=== PATIENT | male | born 1975 | race Caucasian/White ===

== ENCOUNTER 2019-01-29 13:22 | Inpatient (IN) | payer OTHER ==
[2019-01-29 16:16] VITALS: BMI 23.7
--- NOTE | 2019-01-29 20:38 | HP ---
COWS - Scale Resting Pulse: 0= [place] 80 or Below Sweatin=Flushed/Facial Moisture Restless Observation: 5= Unable to Sit Still Pupil Size: 1= Pupils >than Normal Bone or Joint Aches: 4=Acute Joint/Muscle Pain Runny Nose/ Eye Tearin= Nasal Congestion GI Upset > 30mins: 3= Vomiting/Diarrhea Tremor Observation: 0= None Yawning Observation: 1= 1-2x During Session Anxiety or Irritability: 2=Irritable/Anxious Goose Flesh Skin: 3=Piloerection COWS Score: 22 CIWA Score Nausea/Vomitin Muscle Tremors: None Anxiety: 4-Mod. Anxious/Guarded Agitation: 4-Moderately Restless Paroxysmal Sweats: 3 Orientation: 3-Disoriented Date>2 days Tacttile Disturbances: 3-Moderate Itch/Numb/Burn Auditory Disturbances: 0-None Visual Disturbances: 2-Mild Sensitivity (too light) Headache: 3-Moderate CIWA-Ar Total Score: 25 - Admission Criteria OASAS Guidelines: Admission for Medically Managed Detox: Requires at least one of the followin. CIWA greater than 12 2. Seizures within the past 24 hours 3. Delirium tremens within the past 24 hours 4. Hallucinations within the past 24 hours 5. Acute intervention needed for co occurring medical disorder 6. Acute intervention needed for co occurring psychiatric disorder 7. Severe withdrawal that cannot be handled at a lower level of care (continued vomiting, continued diarrhea, abnormal vital signs) requiring intravenous medication and/or fluids 8. Patient presents the following: CIWA greater than 12 Admission Criteria Met: Admission criteria met Admission ROS [facility] Chief Complaint: c/o withdrawal sx's Allergies/Adverse Reactions: Allergies Allergy/AdvReac Type Severity Reaction Status Date / Time No Known Allergies Allergy Verified 01/29/19 16:09 History of Present Illness: 43 Y.O. MALE WITH POLYSUBSTANCE ABUSE HERE FOR ALCOHOL AND HEROIN DETOX. HE WAS REFERRED BY [facility] AFTER PRESENTING THERE "DOPE SICK". HE WAS GIVEN A 10 MG METHADONE INJ. AND LIBRIUM TO STABILIZE. PRESENTS HERE WITH C/O WORSENING WITHDRAWAL SX'S. REPORTS DAILY USE OF ALCOHOL AND HEROIN. LAST USE 1 DAY AGO DUE TO BEING ARRESTED. REPORTS HX/O BLACK OUTS. DENIES SEIZURES, OVERDOSE, IVDU,. DENIES ANY CLEAN TIME. 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 Exam Limitations: No Limitations - Ebola screening Have you traveled outside of the country in the last 21 days: No (N) Have you had contact with anyone from an Ebola affected area: No Do you have a fever: No - Review of Systems Constitutional: Chills, Loss of Appetite, Malaise, Night Sweats, Changes in sleep EENT: reports: Nose Congestion (WITH RUNNY NOSE), Dental Problems (MISSING TOOTH / DENTAL PAIN) Respiratory: reports: No Symptoms reported Cardiac: reports: No Symptoms Reported GI: reports: Nausea, Poor Appetite, Poor Fluid Intake, Vomiting, Abdominal cramping : reports: No Symptoms Reported Musculoskeletal: reports: Back Pain, Joint Pain Integumentary: reports: Flushing, Sweating Neuro: reports: Headache, Seizure, Other (BLACK OUTS) Endocrine: reports: No Symptoms Reported Hematology: reports: No Symptoms Reported Psychiatric: reports: Agitated (IRRITABLE), Anxious Other Systems: Reviewed and Negative Patient History - Patient Medical History Hx Anemia: No Hx Asthma: No Hx Chronic Obstructive Pulmonary Disease (COPD): No Hx Cancer: No Hx Cardiac Disorders: No Hx Congestive Heart Failure: No Hx Hypertension: No Hx Hypercholesterolemia: No Hx Pacemaker: No HX Cerebrovascular Accident: No Hx Seizures: No (DENIES) Hx Dementia: No Hx Diabetes: No Hx Gastrointestinal Disorders: No Hx Liver Disease: No Hx Genitourinary Disorders: No Hx Sexually Transmitted Disorders: No Hx Renal Disease (ESRD): No Hx Thyroid Disease: No Hx Human Immunodeficiency Virus (HIV): No Hx Hepatitis C: No Hx Depression: No Hx Suicide Attempt: No Hx Bipolar Disorder: No Hx Schizophrenia: No Other Medical History: DENIES - Patient Surgical History Past Surgical History: No - PPD History Previous Implant?: Yes Documented Results: Negative w/proof Implanted On Prior [facility] Admission?: No PPD to be Administered?: Yes - Smoking Cessation Smoking history: Current every day smoker Have you smoked in the past 12 months: Yes Aproximately how many cigarettes per day: 10 Hx Chewing Tobacco Use: No Initiated information on smoking cessation: Yes 'Breaking Loose' booklet given: 01/29/19 - Substance & Tx. History Hx Alcohol Use: Yes Hx Substance Use: Yes Substance Use Type: Alcohol, Cocaine, Heroin, Marijuana Hx Substance Use Treatment: No - Substances abused Heroin Substance route: Inhalation Frequency: Daily Amount used: 20 bags/daily Age of first use: 40 Date of last use: 01/29/19 Other Other (specify): Fentanyl Substance route: Inhalation Frequency: Daily Amount used: 20 bags/daily Age of first use: 41 Date of last use: 01/29/19 Alcohol Substance route: Oral Frequency: Daily Amount used: 1 bottle of vern Age of first use: 36 Date of last use: 01/28/19 Admission Physical Exam S - Vital Signs Vital Signs: Vital Signs - 24 hr 01/29/19 01/29/19 16:06 20:10 Temperature 97.1 F L 97.1 F L Pulse Rate 62 62 Respiratory 18 18 Rate Blood Pressure 115/65 115/65 - Physical General Appearance: Yes: Moderate Distress, Irritable (EXTREMELY), Anxious HEENTM: Yes: EOMI, Normocephalic, Normal Voice, DANIEL, Pharynx Normal, Nasal Congestion, Other (MISSING TOOTH) Respiratory: Yes: Chest Non-Tender, Lungs Clear, Normal Breath Sounds, No Respiratory Distress Neck: Yes: No masses,lesions,Nodules, Supple, Trachea in good position Breast: Yes: Breasts Symetrical Cardiology: Yes: Regular Rhythm, Regular Rate, S1, S2 Abdominal: Yes: Normal Bowel Sounds, Non Tender, Soft Genitourinary: Yes: Within Normal Limits Back: Yes: Normal Inspection Musculoskeletal: Yes: full range of Motion, Gait Steady, Back pain (C/O) Extremities: Yes: Normal Range of Motion, Non-Tender Neurological: Yes: Alert, Motor Strength 5/5, Depressed Affect (DENIES SI) Integumentary: Yes: Dry, Warm, Other (FLUSHED) Lymphatic: Yes: Within Normal Limits - Diagnostic (1) Alcohol dependence with withdrawal, uncomplicated Current Visit: Yes Status: Acute (2) Opioid dependence with withdrawal Current Visit: Yes Status: Acute (3) Cannabis dependence, uncomplicated Current Visit: Yes Status: Acute (4) Cocaine dependence, uncomplicated Current Visit: Yes Status: Acute (5) Nicotine dependence Current Visit: Yes Status: Chronic Qualifiers: Nicotine product type: cigarettes Substance use status: uncomplicated Qualified Code(s): F17.210 - Nicotine dependence, cigarettes, uncomplicated (6) At risk for dehydration due to poor fluid intake Current Visit: Yes Status: Acute (7) Homeless Current Visit: Yes Status: Suspected (8) Substance induced mood disorder Current Visit: Yes Status: Acute Cleared for Admission [facility] - Detox or Rehab [facility] Level of Care: Medically Managed Detox Regimen/Protocol: Methadone/Librium Claeared for Rehab Admission: No Breathalyzer - Breathalyzer Breathalyzer: 0 Urine Drug Screen - Test Device Lot number: [id number] Expiration date: 09/26/20 - Control Is test valid?: Yes - Results Drug screen NEGATIVE: No Urine drug screen results: THC-Marijuana, BARB-Cocaine, FEN-Fentanyl, MOP-Opiates , MTD-Methadone, BZO-Benzodiazepines Inpatient Rehab Admission - Rehab Decision to Admit Inpatient rehab admission?: No
[2019-01-29] MEDS ORDERED: ONDANSETRON *ODT* 4 MG TABLET SL PRN (20:44)
[2019-01-29] MEDS ORDERED: METHADONE HCL 10 MG TABLET (FOR DETOX USE ONLY) PO ONE (20:44)
[2019-01-29] MEDS ORDERED: METHOCARBAMOL 500 MG TABLET PO PRN (20:44)
[2019-01-29] MEDS ORDERED: MENTHOL/PHENOL 1 EACH UD MM PRN (20:44)
[2019-01-29] MEDS ORDERED: IBUPROFEN 400 MG TABLET (FP) PO PRN (20:44)
[2019-01-29] MEDS ORDERED: MAG HYDROX/AL HYDROX/SIMETH 30 ML UNIT-DOSE CUP PO PRN (20:44)
[2019-01-29] MEDS ORDERED: MAGNESIUM HYDROX 2400MG/30ML ORAL SUSPENSION 30 ML CUP PO PRN (20:44)
[2019-01-29] MEDS ORDERED: BISMUTH SUBSALICYLATE 524 MG/30 ML UD PO PRN (20:44)
[2019-01-29] MEDS ORDERED: hydrOXYzine PAMOATE 25 MG CAPSULE (FP) PO PRN (20:44)
[2019-01-29] MEDS ORDERED: NICOTINE POLACRILEX 2 MG GUM BUC PRN (20:44)
[2019-01-29] MEDS ORDERED: P-EPHED 60MG/TRIPROLIDI 2.5MG TABLET PO PRN (20:44)
[2019-01-29] MEDS ORDERED: guaiFENesin 200 MG/10 ML 10 ML UNIT-DOSE CUPS PO PRN (20:44)
[2019-01-29] MEDS ORDERED: DICYCLOMINE HCL 10 MG CAPSULE PO PRN (20:44)
[2019-01-29] MEDS ORDERED: chlordiazePOXIDE HCL 10 MG CAPSULE PO PRN (20:44)
[2019-01-29] MEDS ORDERED: cloNIDine HCL 0.1 MG TABLET PO PRN (20:44)
[2019-01-29] MEDS ORDERED: ACETAMINOPHEN 325 MG TABLET (FP) PO PRN ×2 (20:44)
[2019-01-29] MEDS ORDERED: NALOXONE HCL 0.4 MG/ML VIAL IM PRN (20:44)
[2019-01-29] MEDS ORDERED: MAGNESIUM CITRATE 300 ML BOTTLE PO PRN (20:44)
[2019-01-29] MEDS: chlordiazePOXIDE HCL 25 MG CAPSULE PO SCH (22:29)
[2019-01-29] MEDS: THIAMINE HCL 100 MG TABLET (FP) PO SCH (22:38)
[2019-01-29] MEDS: MELATONIN 5 MG TABLETS PO PRN (22:39)
[2019-01-30] MEDS: chlordiazePOXIDE HCL 25 MG CAPSULE PO SCH ×3 (05:40→22:21)
[2019-01-30 09:19] LABS: HEMATOCRIT 37.7 % (35.4-49); HEMOGLOBIN 13.2 GM/dL (11.7-16.9); MCH 31.2 pg (25.7-33.7); MCHC 34.9 g/dl (32.0-35.9); MEAN CELL VOLUME 89.4 fl (80-96); MEAN PLT VOLUME 7.8 fl (7.5-11.1); PLATELET COUNT 300 K/MM3 (134-434); RBC 4.21 M/mm3 (4.00-5.60); RDW 13.5 % (11.9-15.9); WHITE BLOOD COUNT 8.6 K/mm3 (4.0-10.0)
[2019-01-30 09:50] LABS: ALBUMIN 3.2 g/dl (3.4-5.0); BILIRUBIN,TOTAL 0.3 mg/dL (0.2-1); BLOOD UREA NITROGEN 14.9 mg/dL (7-18); CALCIUM 8.5 mg/dL (8.5-10.1); CREATININE 1.1 mg/dL (0.55-1.3); POTASSIUM 4.1 mmol/L (3.5-5.1); TOT PROT 5.8 g/dl (6.4-8.2)
[2019-01-30] MEDS ORDERED: METHADONE HCL 10 MG TABLET (FOR DETOX USE ONLY) PO ONE (10:00)
[2019-01-30] MEDS: PRENATAL VITAMINS W/ FOLIC ACID TABLET (FP) PO SCH (10:40)
[2019-01-30] MEDS: NICOTINE 14 MG/24 HOURS TOPICAL PATCH TD SCH (10:41)
--- NOTE | 2019-01-30 11:54 | PN ---
[facility] CIWA - CIWA Score Nausea/Vomitin-Mild Nausea/No Vomiting Muscle Tremors: 4-Moderate,w/Arms Extend Anxiety: 4-Mod. Anxious/Guarded Agitation: 4-Moderately Restless Paroxysmal Sweats: 3 Orientation: 0-Oriented Tacttile Disturbances: 0-None Auditory Disturbances: 0-None Visual Disturbances: 0-None Headache: 0-None Present CIWA-Ar Total Score: 16 S COWS - Scale Resting Pulse: 0= [place] 80 or Below Sweatin=Flushed/Facial Moisture Restless Observation: 3= Extraneous Movement Pupil Size: 0= Normal to Room Light Bone or Joint Aches: 2= Severe Diffuse Aches Runny Nose/ Eye Tearin= Runny Nose/Eyes GI Upset > 30mins: 3= Vomiting/Diarrhea Tremor Observation of Outstretched Hands: 2= Slight Tremor Visible Yawning Observation: 0= None Anxiety or Irritability: 2=Irritable/Anxious Goose Flesh Skin: 0=Smooth Skin COWS Score: 16 [facility] Progress Note (SOAP) Subjective: Tremor, chills, sweating, back pain Objective: 01/30/19 11:50 Last Vital Signs Temp Pulse Resp BP Pulse Ox 98.2 F 59 L 18 100/74 01/30/19 09:28 01/30/19 09:28 01/30/19 09:28 01/30/19 09:28 Laboratory Tests 01/30/19 01/30/19 07:50 07:50 WBC 8.6 RBC 4.21 Hgb 13.2 Hct 37.7 MCV 89.4 MCH 31.2 MCHC 34.9 RDW 13.5 Plt Count 300 MPV 7.8 Sodium 142 Potassium 4.1 Chloride 106 Carbon Dioxide 34 H Anion Gap 2 L BUN 14.9 Creatinine 1.1 Est GFR (CKD-EPI)AfAm 95.46 Est GFR (CKD-EPI)NonAf 82.36 Random Glucose 82 Calcium 8.5 Total Bilirubin 0.3 AST 10 L ALT 28 Alkaline Phosphatase 90 Total Protein 5.8 L Albumin 3.2 L Labs reviewed: total protein 5.6 (low), albumin 3.2 (low) Assessment: 01/30/19 11:51 Withdrawal sxs Noted with low total protein and hypoalbuminemia Plan: Continue detox Encouraged PO water intake Low total protein and hypoalbuminemia: encouraged diet, ensure 1 cup PO TID
--- NOTE | 2019-01-30 15:28 | CONSULT ---
[facility] Psychiatric Consult - Data Date of interview: 01/30/19 Admission source: [facility] Identifying data: Mr Alvarez is a 43 years old single , employed as a production line mechanic, homeless seeking detox treatment for alcohol, opioid, cocaine and cannabis Substance Abuse History: Reports history of alcohol, heroin, fentanyl, cocaine and marijuana use. Refer to addiction counselor's summary for further information Medical History: Unremarkable. Smokes 10 cigarettes daily Psychiatric History: Denies histoy of previous psychiatric treatment. However, reports sleeping poorly Physical/Sexual Abuse/Trauma History: Denies history of emotional, physical or sexual abuse as well as DV relationship Additional Comment: Reports history one previous misdemeanor arrest Mental Status Exam - Mental Status Exam Alert and Oriented to: Time, Person Cognitive Function: Fair Patient Appearance: Disheveled Mood: Hopeful, Euthymic Affect: Constricted Patient Behavior: Cooperative Speech Pattern: Clear Voice Loudness: Normal Thought Process: Intact, Goal Oriented Hallucinations: Denies Suicidal Ideation: Denies Homicidal Ideation: Denies Insight/Judgement: Poor Sleep: Poorly Appetite: Good Muscle strength/Tone: Normal Gait/Station: Normal Psychiatric Findings - Problem List ([place] 1, 2,3) (1) Substance-induced sleep disorder Current Visit: Yes Status: Acute (2) Alcohol dependence with withdrawal, uncomplicated Current Visit: Yes Status: Acute (3) Opioid dependence with withdrawal Current Visit: Yes Status: Acute (4) Cocaine dependence, uncomplicated Current Visit: Yes Status: Acute (5) Cannabis dependence, uncomplicated Current Visit: Yes Status: Acute (6) Nicotine dependence Current Visit: Yes Status: Chronic Qualifiers: Nicotine product type: cigarettes Substance use status: uncomplicated Qualified Code(s): F17.210 - Nicotine dependence, cigarettes, uncomplicated - Initial Treatment Plan Initial Treatment Plan: 1) Start Melatonin 5 mg po HS prn for insomnia. 2) Continue inpatient detoxification
[2019-01-30] MEDS: THIAMINE HCL 100 MG TABLET (FP) PO SCH (22:21)
[2019-01-30] MEDS: MELATONIN 5 MG TABLETS PO PRN (22:22)
[2019-01-31] MEDS: chlordiazePOXIDE 5 MG CAPSULE PO SCH ×2 (05:38→13:26)
[2019-01-31] MEDS ORDERED: METHADONE HCL 10 MG TABLET (FOR DETOX USE ONLY) PO ONE (10:00)
[2019-01-31] MEDS: PRENATAL VITAMINS W/ FOLIC ACID TABLET (FP) PO SCH (10:22)
[2019-01-31] MEDS: NICOTINE 14 MG/24 HOURS TOPICAL PATCH TD SCH (10:23)
--- NOTE | 2019-01-31 10:27 | PN ---
[facility] CIWA - CIWA Score Nausea/Vomitin-Mild Nausea/No Vomiting Muscle Tremors: 2 Anxiety: 2 Agitation: 2 Paroxysmal Sweats: No Perspiration Orientation: 0-Oriented Tacttile Disturbances: 1-Very Mild Itch/Numbness Auditory Disturbances: 0-None Visual Disturbances: 1-Very Mild Sensitivity Headache: 2-Mild CIWA-Ar Total Score: 11 S COWS - Scale Resting Pulse: 0= [place] 80 or Below Sweatin= No chills or Flushing Restless Observation: 1= Difficult to Sit Still Pupil Size: 1= Pupils >than Normal Bone or Joint Aches: 1= Mild Discomfort Runny Nose/ Eye Tearin= Runny Nose/Eyes GI Upset > 30mins: 2= Nausea/Diarrhea Tremor Observation of Outstretched Hands: 1= Tremor [place], Not Seen Yawning Observation: 1= 1-2x During Session Anxiety or Irritability: 2=Irritable/Anxious Goose Flesh Skin: 0=Smooth Skin COWS Score: 11 [facility] Progress Note (SOAP) Subjective: alert,irritable,anxious,interrupted sleep ,pain in the body Objective: 01/31/19 10:49 Vital Signs Temperature 97.9 F 01/31/19 09:15 Pulse Rate 55 L 01/31/19 09:15 Respiratory Rate 16 01/31/19 09:15 Blood Pressure 105/61 01/31/19 09:15 O2 Sat by Pulse Oximetry (%) Assessment: 01/31/19 10:49 withdrawal symptom Plan: continue detox,methadone and librium regimen
--- NOTE | 2019-01-31 11:45 | PN ---
[facility] Progress Note Note: patient did not want to complete treatment,high risk of relapsing explained, patient understood, signed release ama,seen by counselor
--- NOTE | 2019-01-31 11:48 | DS ---
[facility] Detox Discharge Summary Admission Date: 01/29/19 Discharge Date: 01/31/19 - History Present History: Alcohol Dependence, Opioid Dependence Additional Comments: patient signed release ama,advice to call 911 if not feeling well Pertinent Past History: withdrawal sign signs and symptom - Physical Exam Results Vital Signs: Vital Signs Temperature 97.9 F 01/31/19 09:15 Pulse Rate 55 L 01/31/19 09:15 Respiratory Rate 16 01/31/19 09:15 Blood Pressure 105/61 01/31/19 09:15 O2 Sat by Pulse Oximetry (%) Laboratory Last Values WBC 8.6 K/mm3 (4.0-10.0) 01/30/19 07:50 RBC 4.21 M/mm3 (4.00-5.60) 01/30/19 07:50 Hgb 13.2 GM/dL (11.7-16.9) 01/30/19 07:50 Hct 37.7 % (35.4-49) 01/30/19 07:50 MCV 89.4 fl (80-96) 01/30/19 07:50 MCH 31.2 pg (25.7-33.7) 01/30/19 07:50 MCHC 34.9 g/dl (32.0-35.9) 01/30/19 07:50 RDW 13.5 % (11.9-15.9) 01/30/19 07:50 Plt Count 300 K/MM3 (134-434) 01/30/19 07:50 MPV 7.8 fl (7.5-11.1) 01/30/19 07:50 Sodium 142 mmol/L (136-145) 01/30/19 07:50 Potassium 4.1 mmol/L (3.5-5.1) 01/30/19 07:50 Chloride 106 mmol/L (98-107) 01/30/19 07:50 Carbon Dioxide 34 mmol/L (21-32) H 01/30/19 07:50 Anion Gap 2 MMOL/L (8-16) L 01/30/19 07:50 BUN 14.9 mg/dL (7-18) 01/30/19 07:50 Creatinine 1.1 mg/dL (0.55-1.3) 01/30/19 07:50 Est GFR (CKD-EPI)AfAm 95.46 01/30/19 07:50 Est GFR (CKD-EPI)NonAf 82.36 01/30/19 07:50 Random Glucose 82 mg/dL (74-106) 01/30/19 07:50 Calcium 8.5 mg/dL (8.5-10.1) 01/30/19 07:50 Total Bilirubin 0.3 mg/dL (0.2-1) 01/30/19 07:50 AST 10 U/L (15-37) L 01/30/19 07:50 ALT 28 U/L (13-61) 01/30/19 07:50 Alkaline Phosphatase 90 U/L (45-117) 01/30/19 07:50 Total Protein 5.8 g/dl (6.4-8.2) L 01/30/19 07:50 Albumin 3.2 g/dl (3.4-5.0) L 01/30/19 07:50 RPR Titer Nonreactive (NONREACTIVE) 01/30/19 07:50 - Medication Discharge Medications: Ambulatory Orders NK [No Known Home Medication] 01/29/19 - Diagnosis (1) Opioid dependence with withdrawal Current Visit: Yes Status: Acute (2) Alcohol dependence with withdrawal, uncomplicated Current Visit: Yes Status: Acute (3) Nicotine dependence Current Visit: Yes Status: Chronic Qualifiers: Nicotine product type: cigarettes Substance use status: uncomplicated Qualified Code(s): F17.210 - Nicotine dependence, cigarettes, uncomplicated - AMA Did Patient Leave Against Medical Advice: Yes
[2019-01-31 12:26] LABS: URINE APPEARANCE CLEAR; URINE BILIRUBIN NEGATIVE (NEGATIVE); URINE COLOR YELLOW; URINE GLUCOSE (UA) NEGATIVE (NEGATIVE); URINE KETONE NEGATIVE (NEGATIVE); URINE LEUK ESTERASE NEGATIVE (NEGATIVE); URINE NITRITE NEGATIVE (NEGATIVE); URINE PROTEIN NEGATIVE (NEGATIVE); URINE UROBILINOGEN 0.2 mg/dL (0.2-1.0)
[2019-01-31 17:03] VITALS: BP 111/73; PULSE 60; TEMP 97.5
[2019-02-01] MEDS ORDERED: chlordiazePOXIDE HCL 10 MG CAPSULE PO PRN
[2019-02-01] MEDS ORDERED: chlordiazePOXIDE HCL 10 MG CAPSULE PO SCH (05:00)
[2019-02-01] MEDS ORDERED: METHADONE (DETOX) 10 MG, METHADONE (DETOX) 5 MG PO ONE (10:00)
[2019-02-02] MEDS ORDERED: chlordiazePOXIDE HCL 10 MG CAPSULE PO ONE (05:00)
[2019-02-02] MEDS ORDERED: METHADONE HCL 10 MG TABLET (FOR DETOX USE ONLY) PO ONE (10:00)
[2019-02-03] MEDS ORDERED: METHADONE HCL 5 MG TABLET (FOR DETOX USE ONLY) PO ONE (06:00)
== END 2019-01-31 17:14 | disposition left against medical advice (07) | DRG 770 ==
LOC: YASAS 13:22 → Y6N 21:05
PROVIDERS: ADMIT Allergy & Immunology; ATTEND Allergy & Immunology
PROC: HZ2ZZZZ Detoxification Services for Substance Abuse Treatment (ICD-10-PCS; principal; 2019-01-29)
DX: F11.23 Opioid dependence with withdrawal (principal); F10.230 Alcohol dependence with withdrawal, uncomplicated; F14.20 Cocaine dependence, uncomplicated; F12.20 Cannabis dependence, uncomplicated; F17.210 Nicotine dependence, cigarettes, uncomplicated; F19.282 Other psychoactive substance dependence with psychoactive substance-induced sleep disorder; R77.0 Abnormality of albumin; R63.8 Other symptoms and signs concerning food and fluid intake; R77.9 Abnormality of plasma protein, unspecified; Z59.0 Homelessness
CPT/HCPCS: 36415; 80053; 81003; 85027; 86593

== ENCOUNTER 2019-03-28 10:06 | Inpatient (IN) | payer OTHER ==
[2019-03-28 10:27] VITALS: BMI 23.1
--- NOTE | 2019-03-28 10:52 | HP ---
COWS - Scale Resting Pulse: 0= [place] 80 or Below Sweatin= No chills or Flushing Restless Observation: 1= Difficult to Sit Still Pupil Size: 1= Pupils >than Normal Bone or Joint Aches: 2= Severe Diffuse Aches Runny Nose/ Eye Tearin= None GI Upset > 30mins: 1= Stomach Cramp Tremor Observation: 1= Tremor [place], Not Seen Yawning Observation: 2= >3x During Session Anxiety or Irritability: 1=Feels Anxious/Irritable Goose Flesh Skin: 0=Smooth Skin (used late last night) COWS Score: 9 CIWA Score - Admission Criteria OASAS Guidelines: Admission for Medically Managed Detox: Requires at least one of the followin. CIWA greater than 12 2. Seizures within the past 24 hours 3. Delirium tremens within the past 24 hours 4. Hallucinations within the past 24 hours 5. Acute intervention needed for co occurring medical disorder 6. Acute intervention needed for co occurring psychiatric disorder 7. Severe withdrawal that cannot be handled at a lower level of care (continued vomiting, continued diarrhea, abnormal vital signs) requiring intravenous medication and/or fluids 8. Admitting History and Physical - Admission Chief Complaint: " I want to quit using drugs. I'm tired of being high." History of Present Illness: 43 Y.O. MALE WITH POLYSUBSTANCE ABUSE HERE FOR ALCOHOL AND HEROIN DETOX. HE IS USING 10 BAGS OF HEROIN DAILY, LAST USED AT MIDNIGHT 4 BAGS OF HEROIN. HE DENIES ALCOHOL THOUGH HIS BREATHALYZER IS 0.059 DOES NOT REMEMBER USING ALCOHOL. REPORTS HX/O BLACK OUTS. DENIES SEIZURES, OVERDOSE, IVDU,. HE HAS ABSTINENCE FROM [id number]. HOMELESS AND DENIES LEGAL ISSUES. HE SMOKES 10 CIGGS PER DAY SINCE 19 YEARS OLD. PMH: NONE PSURG: NONE PSYCH: NONE History Source: Patient Limitations to Obtaining History: No Limitations - Smoking History Smoking history: Current every day smoker Have you smoked in the past 12 months: Yes Aproximately how many cigarettes per day: 10 - Alcohol/Substance Use Hx Alcohol Use: Yes Admission ROS [facility] Allergies/Adverse Reactions: Allergies Allergy/AdvReac Type Severity Reaction Status Date / Time No Known Allergies Allergy Verified 03/28/19 10:20 - Ebola screening Have you traveled outside of the country in the last 21 days: No Have you had contact with anyone from an Ebola affected area: No Do you have a fever: No Patient History - Patient Medical History Hx Anemia: No Hx Asthma: No Hx Chronic Obstructive Pulmonary Disease (COPD): No Hx Cancer: No Hx Cardiac Disorders: No Hx Congestive Heart Failure: No Hx Hypertension: No Hx Hypercholesterolemia: No Hx Pacemaker: No HX Cerebrovascular Accident: No Hx Seizures: No Hx Dementia: No Hx Diabetes: No Hx Gastrointestinal Disorders: No Hx Liver Disease: No Hx Genitourinary Disorders: No Hx Sexually Transmitted Disorders: No Hx Renal Disease (ESRD): No Hx Thyroid Disease: No Hx Human Immunodeficiency Virus (HIV): No Hx Hepatitis C: No Hx Depression: No Hx Suicide Attempt: No Hx Bipolar Disorder: No Hx Schizophrenia: No - Patient Surgical History Past Surgical History: No - PPD History Previous Implant?: Yes Documented Results: Negative w/proof Implanted On Prior R Admission?: Yes Date: 01/31/19 Results: NEGATIVE PPD to be Administered?: No - Smoking Cessation Smoking history: Current every day smoker Have you smoked in the past 12 months: Yes Aproximately how many cigarettes per day: 10 Hx Chewing Tobacco Use: No Initiated information on smoking cessation: Yes 'Breaking Loose' booklet given: 03/28/19 - Substances abused Heroin Substance route: Inhalation Frequency: Daily Amount used: 20 bags/daily Age of first use: 40 Date of last use: 03/27/19 Other Other (specify): Fentanyl Substance route: Inhalation Frequency: Daily Amount used: 20 bags/daily Age of first use: 41 Date of last use: 01/29/19 Alcohol Substance route: Oral Frequency: Daily Amount used: 1-2 beers Age of first use: 36 Date of last use: 03/25/19 Admission Physical Exam S - Vital Signs Vital Signs: Vital Signs - 24 hr 03/28/19 10:20 Temperature 97.2 F L Pulse Rate 56 L Respiratory 18 Rate Blood Pressure 105/67 - Physical General Appearance: Yes: Mild Distress, Tremorous, Irritable, Sweating, Anxious HEENTM: Yes: Hearing grossly Normal, Normal ENT Inspection, Normocephalic, Normal Voice, DANIEL, Pharynx Normal, Tm's normal Respiratory: Yes: Chest Non-Tender, Lungs Clear, Normal Breath Sounds Neck: Yes: No masses,lesions,Nodules, Supple, Trachea in good position Breast: Yes: Within Normal Limits Cardiology: Yes: Regular Rhythm, Regular Rate, S1, S2 Abdominal: Yes: Non Tender, Flat, Soft, Increased Bowel Sounds Back: Yes: Normal Inspection Musculoskeletal: Yes: full range of Motion, Gait Steady, Pelvis Stable Extremities: Yes: Normal Capillary Refill, Normal Inspection, Normal Range of Motion, Non-Tender 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 - Detox or Rehab [facility] Level of Care: Medically Managed Detox Regimen/Protocol: Methadone Screened but not Admitted - Documentation of Visit Screened but not Admitted: No Breathalyzer - Breathalyzer Breathalyzer: 0 Urine Drug Screen - Test Device Lot number: [id number] Expiration date: 09/26/20 - Control Is test valid?: Yes - Results Drug screen NEGATIVE: No Urine drug screen results: THC-Marijuana, BARB-Cocaine, FEN-Fentanyl, MOP-Opiates , MTD-Methadone, BZO-Benzodiazepines Inpatient Rehab Admission - Rehab Decision to Admit Inpatient rehab admission?: No
[2019-03-28] MEDS ORDERED: ACETAMINOPHEN 325 MG TABLET (FP) PO PRN ×2 (10:56)
[2019-03-28] MEDS ORDERED: MENTHOL/PHENOL 1 EACH UD MM PRN (10:56)
[2019-03-28] MEDS ORDERED: IBUPROFEN 400 MG TABLET (FP) PO PRN (10:56)
[2019-03-28] MEDS ORDERED: BISMUTH SUBSALICYLATE 262 MG/15 ML BTL PO PRN (10:56)
[2019-03-28] MEDS ORDERED: MAGNESIUM CITRATE 300 ML BOTTLE PO PRN (10:56)
[2019-03-28] MEDS ORDERED: cloNIDine HCL 0.1 MG TABLET PO PRN (10:56)
[2019-03-28] MEDS ORDERED: MAG HYDROX/AL HYDROX/SIMETH 30 ML UNIT-DOSE CUP PO PRN (10:56)
[2019-03-28] MEDS ORDERED: MAGNESIUM HYDROX 2400MG/30ML ORAL SUSPENSION 30 ML CUP PO PRN (10:56)
[2019-03-28] MEDS ORDERED: METHADONE HCL 10 MG TABLET (FOR DETOX USE ONLY) PO ONE (11:45)
[2019-03-28 14:27] LABS: HEMATOCRIT 37.8 % (35.4-49); HEMOGLOBIN 12.3 GM/dL (11.7-16.9); MCHC 32.4 g/dl (32.0-35.9); MEAN CELL VOLUME 89.3 fl (80-96); MEAN PLT VOLUME 7.4 fl (7.5-11.1); PLATELET COUNT 347 K/MM3 (134-434); RBC 4.24 M/mm3 (4.00-5.60); RDW 13.6 % (11.9-15.9); WHITE BLOOD COUNT 7.2 K/mm3 (4.0-10.0)
[2019-03-28 14:41] LABS: ALBUMIN 3.3 g/dl (3.4-5.0); BILIRUBIN,TOTAL 0.2 mg/dL (0.2-1); BLOOD UREA NITROGEN 16.8 mg/dL (7-18); CALCIUM 8.5 mg/dL (8.5-10.1); CREATININE 1.1 mg/dL (0.55-1.3); POTASSIUM 3.6 mmol/L (3.5-5.1); TOT PROT 6.1 g/dl (6.4-8.2)
[2019-03-28] MEDS: THIAMINE HCL 100 MG TABLET (FP) PO SCH (22:37)
[2019-03-29] MEDS ORDERED: METHADONE HCL 10 MG TABLET (FOR DETOX USE ONLY) ONE (08:13)
[2019-03-29] MEDS ORDERED: METHADONE HCL 5 MG TABLET (FOR DETOX USE ONLY) ONE (08:14)
[2019-03-29] MEDS: PRENATAL VITAMINS W/ FOLIC ACID TABLET (FP) PO SCH (09:37)
[2019-03-29] MEDS: NICOTINE 14 MG/24 HOURS TOPICAL PATCH TD SCH (09:38)
[2019-03-29] MEDS ORDERED: METHADONE (DETOX) 20 MG, METHADONE (DETOX) 5 MG PO ONE (10:00)
--- NOTE | 2019-03-29 12:10 | PN ---
[facility] COWS - Scale Resting Pulse: 0= [place] 80 or Below Sweatin= Chills/Flushing Restless Observation: 0= Sits Still Pupil Size: 1= Pupils >than Normal Bone or Joint Aches: 1= Mild Discomfort Runny Nose/ Eye Tearin= None GI Upset > 30mins: 1= Stomach Cramp Tremor Observation of Outstretched Hands: 0= None Yawning Observation: 1= 1-2x During Session Anxiety or Irritability: 2=Irritable/Anxious Goose Flesh Skin: 3=Piloerection COWS Score: 10 [facility] Progress Note (SOAP) Subjective: 43 years old male admitted on 03/28/19 for opiate withdrawal sx management treating with methadone detox regimen ate breakfast tremor and sweating with body aches discuss medication assisted treatment program Objective: 03/29/19 12:12 Vital Signs Temperature 98.3 F 03/29/19 09:05 Pulse Rate 63 03/29/19 09:05 Respiratory Rate 18 03/29/19 09:05 Blood Pressure 106/54 L 03/29/19 09:05 O2 Sat by Pulse Oximetry (%) Laboratory Last Values WBC 7.2 K/mm3 (4.0-10.0) 03/28/19 11:00 RBC 4.24 M/mm3 (4.00-5.60) 03/28/19 11:00 Hgb 12.3 GM/dL (11.7-16.9) 03/28/19 11:00 Hct 37.8 % (35.4-49) 03/28/19 11:00 MCV 89.3 fl (80-96) 03/28/19 11:00 MCH 29.0 pg (25.7-33.7) 03/28/19 11:00 MCHC 32.4 g/dl (32.0-35.9) 03/28/19 11:00 RDW 13.6 % (11.9-15.9) 03/28/19 11:00 Plt Count 347 K/MM3 (134-434) 03/28/19 11:00 MPV 7.4 fl (7.5-11.1) L 03/28/19 11:00 Sodium 141 mmol/L (136-145) 03/28/19 11:00 Potassium 3.6 mmol/L (3.5-5.1) 03/28/19 11:00 Chloride 108 mmol/L (98-107) H 03/28/19 11:00 Carbon Dioxide 28 mmol/L (21-32) 03/28/19 11:00 Anion Gap 4 MMOL/L (8-16) L 03/28/19 11:00 BUN 16.8 mg/dL (7-18) 03/28/19 11:00 Creatinine 1.1 mg/dL (0.55-1.3) 03/28/19 11:00 Est GFR (CKD-EPI)AfAm 95.46 03/28/19 11:00 Est GFR (CKD-EPI)NonAf 82.36 03/28/19 11:00 Random Glucose 91 mg/dL (74-106) 03/28/19 11:00 Calcium 8.5 mg/dL (8.5-10.1) 03/28/19 11:00 Total Bilirubin 0.2 mg/dL (0.2-1) 03/28/19 11:00 AST 17 U/L (15-37) 03/28/19 11:00 ALT 36 U/L (13-61) 03/28/19 11:00 Alkaline Phosphatase 94 U/L (45-117) 03/28/19 11:00 Total Protein 6.1 g/dl (6.4-8.2) L 03/28/19 11:00 Albumin 3.3 g/dl (3.4-5.0) L 03/28/19 11:00 RPR Titer Nonreactive (NONREACTIVE) 03/28/19 11:00 lab noted Assessment: 03/29/19 12:12 opiate withdrawal Plan: methadone regimen
[2019-03-29] MEDS: hydrOXYzine PAMOATE 25 MG CAPSULE (FP) PO PRN (18:17)
[2019-03-29] MEDS: MELATONIN 5 MG TABLETS PO PRN (22:07)
[2019-03-29] MEDS: THIAMINE HCL 100 MG TABLET (FP) PO SCH (22:07)
[2019-03-30] MEDS: hydrOXYzine PAMOATE 25 MG CAPSULE (FP) PO PRN (09:43)
[2019-03-30] MEDS: METHOCARBAMOL 500 MG TABLET PO PRN (09:43)
[2019-03-30] MEDS: PRENATAL VITAMINS W/ FOLIC ACID TABLET (FP) PO SCH (09:43)
[2019-03-30] MEDS: NICOTINE 14 MG/24 HOURS TOPICAL PATCH TD SCH (09:44)
[2019-03-30] MEDS ORDERED: METHADONE HCL 10 MG TABLET (FOR DETOX USE ONLY) PO ONE (10:00)
--- NOTE | 2019-03-30 12:14 | PN ---
BHS COWS - Scale Resting Pulse: 0= [place] 80 or Below Sweatin= Chills/Flushing Restless Observation: 0= Sits Still Pupil Size: 1= Pupils >than Normal Bone or Joint Aches: 1= Mild Discomfort Runny Nose/ Eye Tearin= Nasal Congestion GI Upset > 30mins: 1= Stomach Cramp Tremor Observation of Outstretched Hands: 1= Tremor [place], Not Seen Yawning Observation: 0= None Anxiety or Irritability: 1=Feels Anxious/Irritable Goose Flesh Skin: 0=Smooth Skin COWS Score: 7 BHS Progress Note (SOAP) Subjective: 43 years old male admitted on 03/28/19 for opiate withdrawal sx management treating with methadone detox regimen ate breakfast ambulating on hallway discuss medication assisted treatment program tack picker narcan from pharmacy Objective: 03/30/19 12:13 Vital Signs Temperature 97.5 F L 03/30/19 09:04 Pulse Rate 55 L 03/30/19 09:04 Respiratory Rate 18 03/30/19 09:04 Blood Pressure 119/74 03/30/19 09:04 O2 Sat by Pulse Oximetry (%) Laboratory Last Values WBC 7.2 K/mm3 (4.0-10.0) 03/28/19 11:00 RBC 4.24 M/mm3 (4.00-5.60) 03/28/19 11:00 Hgb 12.3 GM/dL (11.7-16.9) 03/28/19 11:00 Hct 37.8 % (35.4-49) 03/28/19 11:00 MCV 89.3 fl (80-96) 03/28/19 11:00 MCH 29.0 pg (25.7-33.7) 03/28/19 11:00 MCHC 32.4 g/dl (32.0-35.9) 03/28/19 11:00 RDW 13.6 % (11.9-15.9) 03/28/19 11:00 Plt Count 347 K/MM3 (134-434) 03/28/19 11:00 MPV 7.4 fl (7.5-11.1) L 03/28/19 11:00 Sodium 141 mmol/L (136-145) 03/28/19 11:00 Potassium 3.6 mmol/L (3.5-5.1) 03/28/19 11:00 Chloride 108 mmol/L (98-107) H 03/28/19 11:00 Carbon Dioxide 28 mmol/L (21-32) 03/28/19 11:00 Anion Gap 4 MMOL/L (8-16) L 03/28/19 11:00 BUN 16.8 mg/dL (7-18) 03/28/19 11:00 Creatinine 1.1 mg/dL (0.55-1.3) 03/28/19 11:00 Est GFR (CKD-EPI)AfAm 95.46 03/28/19 11:00 Est GFR (CKD-EPI)NonAf 82.36 03/28/19 11:00 Random Glucose 91 mg/dL (74-106) 03/28/19 11:00 Calcium 8.5 mg/dL (8.5-10.1) 03/28/19 11:00 Total Bilirubin 0.2 mg/dL (0.2-1) 03/28/19 11:00 AST 17 U/L (15-37) 03/28/19 11:00 ALT 36 U/L (13-61) 03/28/19 11:00 Alkaline Phosphatase 94 U/L (45-117) 03/28/19 11:00 Total Protein 6.1 g/dl (6.4-8.2) L 03/28/19 11:00 Albumin 3.3 g/dl (3.4-5.0) L 03/28/19 11:00 RPR Titer Nonreactive (NONREACTIVE) 03/28/19 11:00 lab noted Assessment: 03/30/19 12:15 opiate withdrawal Plan: methadone regimen
[2019-03-30] MEDS: THIAMINE HCL 100 MG TABLET (FP) PO SCH (21:59)
[2019-03-30] MEDS: MELATONIN 5 MG TABLETS PO PRN (22:00)
[2019-03-31] MEDS: hydrOXYzine PAMOATE 25 MG CAPSULE (FP) PO PRN (08:30)
[2019-03-31] MEDS: METHOCARBAMOL 500 MG TABLET PO PRN (08:30)
[2019-03-31] MEDS ORDERED: METHADONE HCL 5 MG TABLET (FOR DETOX USE ONLY) ONE (09:03)
[2019-03-31] MEDS ORDERED: METHADONE HCL 10 MG TABLET (FOR DETOX USE ONLY) ONE (09:03)
[2019-03-31] MEDS: PRENATAL VITAMINS W/ FOLIC ACID TABLET (FP) PO SCH (09:04)
[2019-03-31 09:22] VITALS: BP 109/67; PULSE 61; TEMP 97.2
[2019-03-31] MEDS ORDERED: METHADONE (DETOX) 10 MG, METHADONE (DETOX) 5 MG PO ONE (10:00)
[2019-03-31] MEDS: NICOTINE 14 MG/24 HOURS TOPICAL PATCH TD SCH (10:06)
--- NOTE | 2019-03-31 14:27 | DS ---
[facility] Detox Discharge Summary Admission Date: 03/28/19 Discharge Date: 03/31/19 - History Present History: Opioid Dependence Additional Comments: 43 years old male admitted on 03/28/19 for opiate withdrawal sx management treated with methadone detox regimen patient is alert oriented x 3 speech clearly coherently ambulating steady gait ate breakfast tolerated food and fluid well patient requests to have methadone 30-40mg po daily "why you take away my methadone?" discuss the process of detox that methadone dosage gradually reducing the process of medication assisted treatment program that methadone dosage will gradually up to appropriated level patient insists to leave the detox unit that inpatient detox is voluntary admission based on individual needs encourage the patient to go to medication assisted treatment program and tile picker narcan from pharmacy Pertinent Past History: case discussed with the nurse against medical advice discharge is appropriated encourage the patient return to [facility] - Physical Exam Results Vital Signs: Vital Signs Temperature 97.2 F L 03/31/19 09:22 Pulse Rate 61 03/31/19 09:22 Respiratory Rate 18 03/31/19 09:22 Blood Pressure 109/67 03/31/19 09:22 O2 Sat by Pulse Oximetry (%) Pertinent Admission Physical Exam Findings: opiate withdrawal Laboratory Last Values WBC 7.2 K/mm3 (4.0-10.0) 03/28/19 11:00 RBC 4.24 M/mm3 (4.00-5.60) 03/28/19 11:00 Hgb 12.3 GM/dL (11.7-16.9) 03/28/19 11:00 Hct 37.8 % (35.4-49) 03/28/19 11:00 MCV 89.3 fl (80-96) 03/28/19 11:00 MCH 29.0 pg (25.7-33.7) 03/28/19 11:00 MCHC 32.4 g/dl (32.0-35.9) 03/28/19 11:00 RDW 13.6 % (11.9-15.9) 03/28/19 11:00 Plt Count 347 K/MM3 (134-434) 03/28/19 11:00 MPV 7.4 fl (7.5-11.1) L 03/28/19 11:00 Sodium 141 mmol/L (136-145) 03/28/19 11:00 Potassium 3.6 mmol/L (3.5-5.1) 03/28/19 11:00 Chloride 108 mmol/L (98-107) H 03/28/19 11:00 Carbon Dioxide 28 mmol/L (21-32) 03/28/19 11:00 Anion Gap 4 MMOL/L (8-16) L 03/28/19 11:00 BUN 16.8 mg/dL (7-18) 03/28/19 11:00 Creatinine 1.1 mg/dL (0.55-1.3) 03/28/19 11:00 Est GFR (CKD-EPI)AfAm 95.46 03/28/19 11:00 Est GFR (CKD-EPI)NonAf 82.36 03/28/19 11:00 Random Glucose 91 mg/dL (74-106) 03/28/19 11:00 Calcium 8.5 mg/dL (8.5-10.1) 03/28/19 11:00 Total Bilirubin 0.2 mg/dL (0.2-1) 03/28/19 11:00 AST 17 U/L (15-37) 03/28/19 11:00 ALT 36 U/L (13-61) 03/28/19 11:00 Alkaline Phosphatase 94 U/L (45-117) 03/28/19 11:00 Total Protein 6.1 g/dl (6.4-8.2) L 03/28/19 11:00 Albumin 3.3 g/dl (3.4-5.0) L 03/28/19 11:00 RPR Titer Nonreactive (NONREACTIVE) 03/28/19 11:00 Vital Signs Temperature 97.2 F L 03/31/19 09:22 Pulse Rate 61 03/31/19 09:22 Respiratory Rate 18 03/31/19 09:22 Blood Pressure 109/67 03/31/19 09:22 O2 Sat by Pulse Oximetry (%) lab noted - Treatment Hospital Course: Detox Protocol Followed, Discharged Condition Good Patient has Accepted a Rehab Referral to: [facility] - Medication Discharge Medications: Ambulatory Orders Naloxone HCl [Narcan] 4 mg NS ASDIR PRN #1 spray 03/29/19 - Diagnosis (1) Opioid dependence with withdrawal Status: Acute (2) Substance induced mood disorder Status: Suspected (3) Nicotine dependence Status: Acute Qualifiers: Nicotine product type: cigarettes Substance use status: in withdrawal Qualified Code(s): F17.213 - Nicotine dependence, cigarettes, with withdrawal - AMA Did Patient Leave Against Medical Advice: Yes
[2019-04-01] MEDS ORDERED: METHADONE HCL 10 MG TABLET (FOR DETOX USE ONLY) PO ONE (10:00)
[2019-04-02] MEDS ORDERED: METHADONE HCL 5 MG TABLET (FOR DETOX USE ONLY) PO ONE (06:00)
== END 2019-03-31 10:07 | disposition left against medical advice (07) | DRG 770 ==
LOC: YASAS 10:06 → Y3N 11:08
PROVIDERS: ADMIT Allergy & Immunology; ATTEND Allergy & Immunology
PROC: HZ2ZZZZ Detoxification Services for Substance Abuse Treatment (ICD-10-PCS; principal; 2019-03-28)
DX: F11.23 Opioid dependence with withdrawal (principal); F10.230 Alcohol dependence with withdrawal, uncomplicated; F17.210 Nicotine dependence, cigarettes, uncomplicated; F19.24 Other psychoactive substance dependence with psychoactive substance-induced mood disorder
CPT/HCPCS: 36415; 80053; 85027; 86593

== ENCOUNTER 2019-12-01 12:17 | Inpatient (IN) | payer OTHER ==
--- NOTE | 2019-12-01 12:46 | BHS.RME ---
Substance Use & Tx History - Substance Use History Heroin Substance amount: 10 bags Frequency of use: Daily Substance route: Inhalation (ex: sniffing or snorting) Date of Last Use: 12/01/19 Marijuana/Hashish Substance amount: 1 blunt Date of Last Use: 11/17/19 Nicotine Substance amount: 10 ciggs Frequency of use: Daily Substance route: Smoking Date of Last Use: 12/01/19 - Last Treatment Date of last treatment: 2018 Treatment type: Substance Use Disorder (LIBBY) Where was last treatment: Detox (completed) Physical/Psych/Mental Status - Behavior General Behavior: Increased activity (restlessness, agitation) Eye Contact: Normal - Cooperativeness Cooperativeness: Cooperative - Thinking Thought Processes: Tight, Logical, Goal Directed - Physical Health Problems Is patient presently having any pain?: No Does patient presently have any injuries (include location): No Does patient currently have a fever: No Is patient : No COWS - Scale Resting Pulse: 0= [place] 80 or Below Sweatin= Chills/Flushing Restless Observation: 1= Difficult to Sit Still Pupil Size: 1= Pupils >than Normal Bone or Joint Aches: 4=Acute Joint/Muscle Pain Runny Nose/ Eye Tearin= Nasal Congestion GI Upset > 30mins: 1= Stomach Cramp Tremor Observation: 1= Tremor [place], Not Seen Yawning Observation: 0= None Anxiety or Irritability: 0= None Goose Flesh Skin: 0=Smooth Skin COWS Score: 10
[2019-12-01 13:28] VITALS: BMI 23.6
--- NOTE | 2019-12-01 14:03 | HP ---
COWS - Scale Resting Pulse: 0= [place] 80 or Below Sweatin= Chills/Flushing Restless Observation: 1= Difficult to Sit Still Pupil Size: 1= Pupils >than Normal Bone or Joint Aches: 4=Acute Joint/Muscle Pain Runny Nose/ Eye Tearin= Nasal Congestion GI Upset > 30mins: 1= Stomach Cramp Tremor Observation: 1= Tremor [place], Not Seen Yawning Observation: 0= None Anxiety or Irritability: 0= None Goose Flesh Skin: 0=Smooth Skin COWS Score: 10 CIWA Score - Admission Criteria OASAS Guidelines: Admission for Medically Managed Detox: Requires at least one of the followin. CIWA greater than 12 2. Seizures within the past 24 hours 3. Delirium tremens within the past 24 hours 4. Hallucinations within the past 24 hours 5. Acute intervention needed for co occurring medical disorder 6. Acute intervention needed for co occurring psychiatric disorder 7. Severe withdrawal that cannot be handled at a lower level of care (continued vomiting, continued diarrhea, abnormal vital signs) requiring intravenous medication and/or fluids 8. Admitting History and Physical - Admission History of Present Illness: 43 y.o. M presenting to [facility] for detox. Patient was examined in the room and is in no acute distress. Patient drug use consists of heroin intranasal 10 bags a day no overdoses, marijuana 1 blunt a day, 10 cigarettes a day. - Substance Use History Heroin Substance amount: 10 bags Frequency of use: Daily Substance route: Inhalation (ex: sniffing or snorting) Date of Last Use: 12/01/19 Marijuana/Hashish Substance amount: 1 blunt Date of Last Use: 11/17/19 Nicotine Substance amount: 10 ciggs Frequency of use: Daily Substance route: Smoking Date of Last Use: 12/01/19 - Last Treatment Date of last treatment: 2018 Treatment type: Substance Use Disorder (LIBBY) Where was last treatment: Detox (completed) History Source: Patient Limitations to Obtaining History: No Limitations - Past Medical History TWIST TESTER: No: Seizure Cardiovascular: No: HTN, Hyperlipdemia Pulmonary: No: COPD, Pneumonia Gastrointestinal: No: GI Bleed Hepatobiliary: No: Hepatitis A, Hepatitis B, Hepatitis C Infectious Disease: No: HIV, STD's, Tuberculosis Psych: No: Anxiety, Depression - Past Surgical History Past Surgical History: Yes: None - Smoking History Smoking history: Current every day smoker Have you smoked in the past 12 months: Yes Aproximately how many cigarettes per day: 10 - Alcohol/Substance Use Hx Alcohol Use: Yes History of Substance Use: reports: Heroin, Marijuana - Social History Usual Living Arrangement: Yes: Other (homeless) ADL: Independent History of Recent Travel: No Admission [facility] Allergies/Adverse Reactions: Allergies Allergy/AdvReac Type Severity Reaction Status Date / Time No Known Allergies Allergy Verified 12/01/19 14:25 History of Present Illness: 43 y.o. M presenting to [facility] for detox. Patient was examined in the room and is in no acute distress. Patient drug use consists of heroin 10 bags a day no overdoses, marijuana 1 blunt a day, 10 cigarettes a day. - Substance Use History Heroin Substance amount: 10 bags Frequency of use: Daily Substance route: Inhalation (ex: sniffing or snorting) Date of Last Use: 12/01/19 Marijuana/Hashish Substance amount: 1 blunt Date of Last Use: 11/17/19 Nicotine Substance amount: 10 ciggs Frequency of use: Daily Substance route: Smoking Date of Last Use: 12/01/19 - Last Treatment Date of last treatment: 2018 Treatment type: Substance Use Disorder (LIBBY) Where was last treatment: Detox (completed) Exam Limitations: No Limitations - Ebola screening Have you traveled outside of the country in the last 21 days: No Have you had contact with anyone from an Ebola affected area: No Have you been sick,other than usual withdrawal symptoms: No Do you have a fever: No - Review of Systems Constitutional: No Symptoms Reported EENT: denies: Blurred Vision, Double Vision Respiratory: denies: Cough, Shortness of Breath Cardiac: denies: Chest Pain, Lightheadedness GI: denies: Constipated, Diarrhea, Nausea, Vomiting : denies: Burning, Dysuria Musculoskeletal: denies: Muscle Weakness Neuro: denies: Headache, Dizziness Psychiatric: reports: No Sypmtoms Reported, Judgement Intact, Mood/Affect Appropiate, Orientated x3 Patient History - Patient Medical History Hx Anemia: No Hx Asthma: No Hx Chronic Obstructive Pulmonary Disease (COPD): No Hx Cancer: No Hx Cardiac Disorders: No Hx Congestive Heart Failure: No Hx Hypertension: No Hx Hypercholesterolemia: No Hx Pacemaker: No HX Cerebrovascular Accident: No Hx Seizures: No Hx Dementia: No Hx Diabetes: No Hx Gastrointestinal Disorders: No Hx Liver Disease: No Hx Genitourinary Disorders: No Hx Sexually Transmitted Disorders: No Hx Renal Disease (ESRD): No Hx Thyroid Disease: No Hx Human Immunodeficiency Virus (HIV): No Hx Hepatitis C: No Hx Depression: No Hx Suicide Attempt: No Hx Bipolar Disorder: No Hx Schizophrenia: No - Patient Surgical History Past Surgical History: No Hx Neurologic Surgery: No Hx Cataract Extraction: No Hx Cardiac Surgery: No Hx Lung Surgery: No Hx Breast Surgery: No Hx Breast Biopsy: No Hx Abdominal Surgery: No Hx Appendectomy: No Hx Cholecystectomy: No Hx Genitourinary Surgery: No Hx Section: No Hx Orthopedic Surgery: No Anesthesia Reaction: No - PPD History Date: 01/31/19 Results: NEGATIVE - Smoking Cessation Smoking history: Current every day smoker Have you smoked in the past 12 months: Yes Aproximately how many cigarettes per day: 10 Hx Chewing Tobacco Use: No Initiated information on smoking cessation: Yes 'Breaking Loose' booklet given: 12/01/19 Admission Physical Exam S - Vital Signs Vital Signs: Vital Signs - 24 hr 12/01/19 13:24 Temperature 97.5 F L Pulse Rate 49 L Respiratory 16 Rate Blood Pressure 97/66 - Physical General Appearance: Yes: Within Normal Limits, No Apparent Distress, Nourished, Appropriately Dressed Respiratory: Yes: Within Normal Limits, Lungs Clear, Normal Breath Sounds, No Respiratory Distress, No Accessory Muscle Use Cardiology: Yes: Within Normal Limits, Regular Rhythm, Regular Rate Abdominal: Yes: Within Normal Limits, Normal Bowel Sounds, Non Tender, Flat, Soft Back: No: CVA Tenderness Musculoskeletal: Yes: Within Normal Limits, full range of Motion. No: Muscle weakness Extremities: Yes: Within Normal Limits, Normal Inspection, Normal Range of Motion, Non-Tender Neurological: Yes: Within Normal Limits, Fully Oriented, Alert, Normal Mood/A ffect, Normal Response Integumentary: Yes: Normal Color, Warm, Other (small lesion on forehead and arms) - Diagnostic (1) Cannabis dependence, uncomplicated Current Visit: No Status: Acute (2) Nicotine dependence Current Visit: No Status: Acute Qualifiers: Nicotine product type: cigarettes Substance use status: in withdrawal Qualified Code(s): F17.213 - Nicotine dependence, cigarettes, with withdrawal (3) Opioid dependence with withdrawal Current Visit: No Status: Acute (4) Homeless Current Visit: No Status: Suspected (5) Substance induced mood disorder Current Visit: No Status: Suspected Breathalyzer - Breathalyzer Breathalyzer: 0 Vital Signs - Vital Signs Vital signs refused: No Temperature: 97.5 F Pulse Rate: 49 Respiratory Rate: 16 Blood Pressure: 97/66 - Height Height: 1.7 m - Weight Weight: 68.492 kg - BMI Body Mass Index (BMI): 23.6 Urine Drug Screen - Test Device Lot number: [id number] Expiration date: 11/27/20 - Control Is test valid?: Yes - Results Drug screen NEGATIVE: No (+ MOR) Urine drug screen results: THC-Marijuana, BARB-Cocaine, FEN-Fentanyl, MTD- Methadone Inpatient Rehab Admission - Rehab Decision to Admit Inpatient rehab admission?: No
[2019-12-01] MEDS ORDERED: MAGNESIUM CITRATE 300 ML BOTTLE PO PRN (14:06)
[2019-12-01] MEDS ORDERED: MAGNESIUM HYDROX 2400MG/30ML ORAL SUSPENSION 30 ML CUP PO PRN (14:06)
[2019-12-01] MEDS ORDERED: IBUPROFEN 400 MG TABLET (FP) PO PRN (14:06)
[2019-12-01] MEDS ORDERED: BISMUTH SUBSALICYLATE 524 MG/30 ML UD PO PRN (14:06)
[2019-12-01] MEDS ORDERED: MAG HYDROX/AL HYDROX/SIMETH 30 ML UNIT-DOSE CUP PO PRN (14:06)
[2019-12-01] MEDS ORDERED: MENTHOL/PHENOL 1 EACH UD MM PRN (14:06)
[2019-12-01] MEDS ORDERED: ACETAMINOPHEN 325 MG TABLET (FP) PO PRN ×2 (14:06)
[2019-12-01] MEDS ORDERED: cloNIDine HCL 0.1 MG TABLET PO PRN (14:06)
[2019-12-01] MEDS ORDERED: ONDANSETRON *ODT* 4 MG TABLET SL ONE (14:06)
[2019-12-01] MEDS ORDERED: NICOTINE POLACRILEX 2 MG GUM BUC PRN (14:06)
[2019-12-01] MEDS ORDERED: METHOCARBAMOL 500 MG TABLET PO PRN (14:06)
[2019-12-01] MEDS ORDERED: hydrOXYzine PAMOATE 25 MG CAPSULE (FP) PO PRN ×2 (14:55→15:47)
--- NOTE | 2019-12-01 14:59 | PN ---
SULEMAN Progress Note Note: EKG SB at 38 No cardiac hx or current symptoms Walked patient in front of desk in C, pulse checked 55. Case discussed with Dr. Mcneil
[2019-12-01] MEDS ORDERED: MELATONIN 5 MG TABLETS PO PRN (15:00)
[2019-12-01] MEDS ORDERED: ONDANSETRON *ODT* 4 MG TABLET SL PRN (15:00)
[2019-12-01] MEDS ORDERED: METHADONE HCL 10 MG TABLET (FOR DETOX USE ONLY) PO ONE (15:00)
--- NOTE | 2019-12-01 15:28 | PN ---
Teaching Attending Note Name of Resident: Emerson Armstrong ATTENDING PHYSICIAN STATEMENT I saw and evaluated the patient. I reviewed the resident's note and discussed the case with the resident. I agree with the resident's findings and plan as documented. SUBJECTIVE: OBJECTIVE: ASSESSMENT AND PLAN: 43 y.o. M presenting to [facility] for detox. Patient was examined in the room and is in no acute distress. Patient drug use consists of heroin intranasal 10 bags a day no overdoses, marijuana 1 blunt a day, 10 cigarettes a day. Imp 1. Opiod withdrawal 2. Cannabis use disorder 3. Nicotine dependence Plan 1. Methadone detox protocol 2. Nicoderm patch
[2019-12-01 17:03] LABS: HEMATOCRIT 38.8 % (35.4-49); MCH 30.1 pg (25.7-33.7); MCHC 33.4 g/dl (32.0-35.9); MEAN PLT VOLUME 7.9 fl (7.5-11.1); PLATELET COUNT 281 K/MM3 (134-434); RBC 4.31 M/mm3 (4.00-5.60); RDW 14.2 % (11.9-15.9); WHITE BLOOD COUNT 8.2 K/mm3 (4.0-10.0)
[2019-12-01] MEDS ORDERED: hydrOXYzine PAMOATE 25 MG CAPSULE (FP) PO SCH (18:00)
[2019-12-01 18:28] LABS: ALBUMIN 3.8 g/dl (3.4-5.0); BILIRUBIN,TOTAL 0.5 mg/dL (0.2-1); BLOOD UREA NITROGEN 14.6 mg/dL (7-18); CALCIUM 8.4 mg/dL (8.5-10.1); CREATININE 1.2 mg/dL (0.55-1.3); POTASSIUM 3.7 mmol/L (3.5-5.1); TOT PROT 6.7 g/dl (6.4-8.2)
[2019-12-01] MEDS ORDERED: MELATONIN 5 MG TABLETS PO SCH (22:00)
[2019-12-01] MEDS ORDERED: THIAMINE HCL 100 MG TABLET (FP) PO SCH (22:00)
[2019-12-02 09:51] VITALS: BP 129/66; PULSE 671; TEMP 97.7
[2019-12-02] MEDS ORDERED: NICOTINE 7 MG/24 HOURS TOPICAL PATCH TD SCH (10:00)
[2019-12-02] MEDS ORDERED: METHADONE HCL 5 MG TABLET (FOR DETOX USE ONLY) PO ONE (10:00)
[2019-12-02] MEDS ORDERED: PRENATAL VITAMINS W/ FOLIC ACID TABLET (FP) PO SCH (10:00)
--- NOTE | 2019-12-02 10:57 | EKG ---
Test Reason : Blood Pressure : / mmHG Vent. Rate : 038 BPM Atrial Rate : 038 BPM P-R Int : 156 ms QRS Dur : 090 ms QT Int : 444 ms P-R-T Axes : 043 061 043 degrees QTc Int : 352 ms MARKED SINUS BRADYCARDIA ABNORMAL ECG NO PREVIOUS ECGS AVAILABLE Confirmed by HANNAH FIELD MD ([id number]) on 12/02/2019 10:57:33 AM Referred By: Confirmed By:HANNAH FIELD MD
--- NOTE | 2019-12-02 12:44 | PN ---
[facility] Progress Note Note: PT STATES " I WANT TO LEAVE NOW AND GO TO [place]" Discussion was made with patient, supervisor spinning counselor marlen Qiu regarding risk of relapse, seizure, DT, OD and or loss, however pt chose to sign out AMA.
--- NOTE | 2019-12-02 13:02 | DS ---
[facility] Detox Discharge Summary Admission Date: 12/01/19 Discharge Date: 12/02/19 - History Present History: Alcohol Dependence, Cannabis Dependence, Cocaine Dependence, Opioid Dependence - Physical Exam Results Vital Signs: Vital Signs Temperature 97.7 F 12/02/19 09:50 Pulse Rate 671 H 12/02/19 09:50 Respiratory Rate 18 12/02/19 09:50 Blood Pressure 129/66 12/02/19 09:50 O2 Sat by Pulse Oximetry (%) 100 12/02/19 05:16 Pertinent Admission Physical Exam Findings: Vital Signs Temperature 97.7 F 12/02/19 09:50 Pulse Rate 671 H 12/02/19 09:50 Respiratory Rate 18 12/02/19 09:50 Blood Pressure 129/66 12/02/19 09:50 O2 Sat by Pulse Oximetry (%) 100 12/02/19 05:16 Laboratory Tests 12/01/19 12/01/19 12/01/19 14:15 14:15 14:15 WBC 8.2 RBC 4.31 Hgb 13.0 Hct 38.8 MCV 90.0 MCH 30.1 MCHC 33.4 RDW 14.2 Plt Count 281 MPV 7.9 Sodium 140 Potassium 3.7 Chloride 105 Carbon Dioxide 32 Anion Gap 4 L BUN 14.6 Creatinine 1.2 Est GFR (CKD-EPI)AfAm 85.92 Est GFR (CKD-EPI)NonAf 74.14 Random Glucose 106 Calcium 8.4 L Total Bilirubin 0.5 AST 16 ALT 29 Alkaline Phosphatase 102 Total Protein 6.7 Albumin 3.8 Syphilis Serology Non-reactive aaox3 ambulating no acute distress pt chose to sign out AMA. - Treatment Hospital Course: Detox Protocol Followed, Rehab Referral Accepted - Medication Discharge Medications: Ambulatory Orders NK [No Known Home Medication] 12/01/19 - Diagnosis (1) Alcohol dependence with withdrawal, uncomplicated Status: Acute (2) Alcohol use disorder Status: Acute (3) At risk for dehydration due to poor fluid intake Status: Acute (4) Cannabis dependence, uncomplicated Status: Acute (5) Cocaine dependence, uncomplicated Status: Acute (6) Nicotine dependence Status: Acute Qualifiers: Nicotine product type: cigarettes Substance use status: in withdrawal Qualified Code(s): F17.213 - Nicotine dependence, cigarettes, with withdrawal (7) Opioid dependence with withdrawal Status: Acute (8) Substance-induced sleep disorder Status: Acute (9) Homeless Status: Suspected (10) Substance induced mood disorder Status: Suspected - AMA Did Patient Leave Against Medical Advice: Yes
[2019-12-03] MEDS ORDERED: METHADONE HCL 10 MG TABLET (FOR DETOX USE ONLY) PO ONE (10:00)
[2019-12-04] MEDS ORDERED: METHADONE HCL 5 MG TABLET (FOR DETOX USE ONLY) PO ONE (06:00)
== END 2019-12-02 09:50 | disposition home or self-care (01) | DRG 773 ==
LOC: YASAS 12:17 → Y6N 14:25
PROVIDERS: ADMIT Allergy & Immunology; ATTEND Allergy & Immunology
PROC: HZ2ZZZZ Detoxification Services for Substance Abuse Treatment (ICD-10-PCS; principal; 2019-12-01)
DX: F11.23 Opioid dependence with withdrawal (principal); F10.230 Alcohol dependence with withdrawal, uncomplicated; F14.20 Cocaine dependence, uncomplicated; F12.20 Cannabis dependence, uncomplicated; F17.210 Nicotine dependence, cigarettes, uncomplicated; F19.282 Other psychoactive substance dependence with psychoactive substance-induced sleep disorder; F19.24 Other psychoactive substance dependence with psychoactive substance-induced mood disorder; R63.8 Other symptoms and signs concerning food and fluid intake; Z59.0 Homelessness
CPT/HCPCS: 36415; 80053; 85027; 86780; 93005; 93010; U0003